=== PATIENT | male | born 1980 | race Caucasian/White ===

== ENCOUNTER 2020-06-22 09:35 | Emergency (ER) | payer BC, SELFPAY ==
[~2020-06-22] VITALS: Ht 172.7 cm; Wt 83.9 kg
[2020-06-22 09:53] VITALS: Ht 172.7 cm; Wt 83.9 kg
[2020-06-22 10:48] LABS: CARBON DIOXIDE 25.9 mmol/L (21-32); CHLORIDE SERUM 105 mmol/L (98-107); CREATININE SERUM 1.3 mg/dL (0.7-1.3); GFR1 > 60 mL/min; GLUCOSE SERUM 116 mg/dL (74-106); SODIUM SERUM 142 mmol/L (136-145)
[2020-06-22 10:50] LABS: BASOPHIL % 0.8 % (0-2); RED CELL DISTRIBUTION WIDTH 12.5 % (11.5-14.5)
[2020-06-22 10:52] LABS: PLATELET COUNT 554 x10^3mcL (130-400)
[2020-06-22 10:54] LABS: ALKALINE PHOSPHATASE 59 U/L (46-116); ALT/SGPT 60 U/L (16-63); AST/SGOT 29 U/L (15-37); BILIRUBIN TOTAL 0.35 mg/dL (0.20-1.00); LIPASE 312 IU/L (73-393)
[2020-06-22 10:57] LABS: ALBUMIN 3.2 g/dL (3.4-5.0)
[2020-06-22 12:18] VITALS: BP 110/56
== END 2020-06-22 09:53 | disposition home or self-care (01) ==
LOC: ED 09:35
PROVIDERS: Emergency Medicine
DX: R10.32 Left lower quadrant pain (principal); R11.0 Nausea
CPT/HCPCS: J1885; J2405; J7030